=== PATIENT | female | born 1995 | race Caucasian/White ===

== ENCOUNTER 2023-08-28 10:33 | Emergency (ER) | payer MEDICAID ==
[~2023-08-28] VITALS: Ht 152.4 cm; Wt 49.9 kg
[2023-08-28 10:44] VITALS: BP 118/94; PULSE 95; RESP 18; TEMP 98.3; O2SAT 98
[2023-08-28] MEDS: ACETAMINOPHEN EXTRA STRENGTH 500 MG TAB PO ONE (13:09)
== END 2023-08-28 13:30 | disposition left against medical advice (07) ==
LOC: MED 10:33
DX: R07.2 Precordial pain (principal); R06.02 Shortness of breath; K74.60 Unspecified cirrhosis of liver; Z85.07 Personal history of malignant neoplasm of pancreas
CPT/HCPCS: 71046; 81025; 93005; 99283